=== PATIENT | female | born 2005 | race Caucasian/White ===

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

== ENCOUNTER 2025-01-24 21:06 | Emergency (ER) | payer OTHER, SELFPAY ==
[2025-01-24 21:17] VITALS: BP 111/76; PULSE 62; RESP 16; TEMP 36.6; O2SAT 99; BMI 23.8
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
== END 2025-01-25 | disposition home or self-care (01) ==
PROVIDERS: Emergency Provider Physician Assistant; PCP Nurse Practitioner Family
DX: H72.92 Unspecified perforation of tympanic membrane, left ear (principal)
CPT/HCPCS: 99283

== ENCOUNTER → 2025-06-03 14:57 | Outpatient (BNVA) | payer OTHER, SELFPAY | PROVIDERS: PCP Nurse Practitioner Family; Visit Provider Clinical Nurse Specialist Adult Health | DX: J02.9 Acute pharyngitis, unspecified (principal) | CPT/HCPCS: 87880 ==